=== PATIENT | male | born 1975 | race Caucasian/White ===

== ENCOUNTER 2021-04-24 21:42 | Emergency (ER) | payer BC ==
[2021-04-24] MEDS ORDERED: TYLENOL EXTRA500 M2 PO (22:49)
[2021-04-24] MEDS ORDERED: ADVIL 200MG TA200 MG PO (22:49)
[2021-04-25 00:05] LABS: BASO # 0.06 (0.02-0.10); HEMATOCRIT 44.3 % (42.0-52.0); HEMOGLOBIN 15.7 g/dL (13.5-18.0); LYMPH# 1.59 (1.50-4.00); MEAN CELL VOLUME 86 fl (78-100); MEAN CORPUSCULAR HEMOGLOBIN 31 pg (27-31); MEAN CORPUSCULAR HGB CONC 35 g/dL (33-37); MEAN PLATELET VOLUME 10.2 fl (7.4-10.4); MONO # 0.85 (0.20-0.80); NEU # 5.69 (1.40-6.50); PLATELET COUNT 275 K/mm3 (130-400); RED BLOOD COUNT 5.13 M/mm3 (4.20-5.60); RED CELL DISTRIBUTION WIDTH 11.9 % (11.5-14.5); WHITE BLOOD COUNT 8.2 K/mm3 (4.8-10.8)
[2021-04-25 00:23] LABS: ALBUMIN 4.1 g/dL (3.5-5.0); POTASSIUM 3.4 mmol/L (3.5-5.1)
[2021-04-25 00:24] LABS: CALCIUM 9.6 mg/dL (8.3-10.5)
[2021-04-25 00:25] LABS: TOTAL PROTEIN 7.2 g/dL (6.4-8.3)
[2021-04-25 00:27] LABS: TOTAL BILIRUBIN 0.6 mg/dL (0.2-1.2)
[2021-04-25] MEDS ORDERED: LISINOPRIL10 MG PO (01:19)
[2021-04-25] MEDS ORDERED: POLYMYXIN B/TRI10 ML OP (01:19)
[2021-04-25 02:01] VITALS: BP 165/102
== END 2021-04-25 02:01 | disposition home or self-care (01) ==
LOC: ED 21:42
PROVIDERS: Nurse Practitioner Family
DX: G43.909 Migraine, unspecified, not intractable, without status migrainosus (principal); I10 Essential (primary) hypertension; E66.9 Obesity, unspecified; Z91.14 Patient's other noncompliance with medication regimen
CPT/HCPCS: J1200; J1885; J2405; J7030